=== PATIENT | male | born 1950 | race Caucasian/White ===

== ENCOUNTER 2017-03-16 22:37 | Emergency (ER) | payer MEDICARE, OTHER ==
--- NOTE | ~2017-03-16 | ER ---
PATIENT'S NAME: SHARRI QUINTERO [facility] AGE: 67 Y [address] ROOM: [place] [address] LOCATION: [facility] ADMIT DATE: 03/16/2017 ER/Outpatient Report DISCHARGE DATE: 03/17/2017 FAMILY PHYSICIAN: Giorgio Avlia MD ATTENDING PHYSICIAN: Erin Mejias HISTORY OF PRESENT ILLNESS: This is a 67-year-old male who presents today with a chief complaint of epigastric upper abdominal pain. He says it is band like through his upper abdomen and goes around to his back. Denies any urinary symptoms. This happened approximately 2 days ago. It lasted about 3 hours, was really intense, and then it just went away and then today it started approximately 10 hours ago. It has been coming and going in intensity, but still been constant, associated with some nausea, but no vomiting, no diarrhea. He is passing gas and having normal bowel movements. Denies any fever or chills. No urinary symptoms. The patient says prior to both of these he had some food, earlier today, for lunch, he had some fried food and some reed as well. Currently, his pain is 6/10, but when it is really bad, it is a 10/10. Denies any chest pain, shortness of breath, or diaphoresis. PAST MEDICAL HISTORY: Includes esophageal cancer. PAST SURGICAL HISTORY: Includes esophagectomy and hernia repair x3. SOCIAL HISTORY: He does not smoke, drink, or use any drugs. MEDICATIONS: Please see med list. ALLERGIES: NONE. REVIEW OF SYSTEMS: Reviewed by me and negative with the exception of those discussed in the HPI. PHYSICAL EXAMINATION: VITAL SIGNS: The patient is 5 feet, 11 inches, he is 84.4 kilos. Blood pressure is 123/79, heart rate 60, respiratory rate 18, temp is 96.3, and satting 98% on room air. GENERAL: The patient is an elderly white male. He looks mildly uncomfortable, but he is nontoxic, he is not jaundiced, he is not actively vomiting or retching. He is A and O x4. Moves all extremities. GCS is 15. PATIENT'S NAME: SHARRI QUINTERO [facility] AGE: 67 Y [address] ROOM: [place] [address] LOCATION: [facility] ADMIT DATE: 03/16/2017 ER/Outpatient Report DISCHARGE DATE: 03/17/2017 FAMILY PHYSICIAN: Giorgio Avila MD ATTENDING PHYSICIAN: Erin Mejias HEART: Heart rate is regular rate and rhythm. LUNGS: Lung sounds are clear. ABDOMEN: He has a large horizontal scar in his abdomen from where he had esophagectomy, but otherwise, he is just mildly tender in like the epigastric area, right upper quadrant, left upper quadrant area. He has no rebound or guarding. Negative Laboy sign. No CVA tenderness bilaterally. No right lower quadrant tenderness or left lower quadrant tenderness. EMERGENCY DEPARTMENT COURSE: I did a bedside ultrasound and I am clearly able to see a gallstone. There is shadowing, but there is no anterior gallbladder wall thickening, there is no pericholecystic fluid, he does not have a sonographic Laboy's, the gallbladder does not appear distended either. We did check some lab work including a CBC, CBC shows a white count of 4.7, H and H is 12.1/34.7, and platelets are 162. No bandemia. CMS shows a sodium of 137, potassium 3.9, chloride 103, CO2 27, anion gap 12.9, BUN is 12, creatinine is 0.8, total bilirubin is 0.5, alk phos is 87, AST 18, ALT 24, GFR greater than 60, amylase 64, lipase 256. Lactic acid 0.6. Procalcitonin less than 0.05. The patient was given Zofran and Percocet here after which he said his pain was much better. He said he cannot really feel it anymore and he is not nauseous. Discussed this with him that this is likely biliary colic according to this informal ultrasound that we did at bedside, but he will need to follow up with his primary care doctor. I told him to adjust his diet. No fatty or greasy foods. He will follow up appropriately with his primary care doctor. He understands reasons to come back to the ER sooner. IMPRESSION: Biliary colic. MD JAYCEE VELAW/moddenzel /[id number] d: 03/17/17 0407 t: 03/17/17 1822, OUTPATIENT REPORT
[2017-03-16 23:28] LABS: BASOPHIL % 0.6 %; EOSINOPHIL # 0.3 K/uL (0.0-0.5); EOSINOPHIL % 5.8 %; HEMATOCRIT 34.7 % (37.0-53.0); HEMOGLOBIN 12.1 g/dL (11.0-16.0); LYMPHOCYTE # 0.8 K/uL (0.8-4.0); LYMPHOCYTE % 16.5 %; MCH 33.1 pg (27.0-34.0); MCHC 34.9 gm/dL (32.0-36.5); MCV 94.8 fl (83.0-98.0); MONOCYTE # 0.5 K/uL (0.0-1.0); MONOCYTE % 10.3 %; NEUTROPHIL # (ANC) 3.1 K/uL (1.4-9.0); NEUTROPHIL % 66.8 %; NRBC % 0 /100WBC (0-0.00); PLATELET COUNT 162 K/uL (150-450); RBC 3.66 M/uL (3.50-5.50); RDW-CV 12.7 % (11.9-14.6); WBC 4.7 K/uL (4.0-11.0)
[2017-03-16 23:46] LABS: ALBUMIN 3.2 gm/dL (3.5-5.0); ALK PHOS 87 IU/L (33-138); ALT 24 IU/L (12-78); ANION GAP 10.9 (10.0-19.0); AST 18 IU/L (10-40); BLOOD UREA NITROGEN 12 mg/dL (6-24); CALCIUM 8.2 mg/dL (8.5-10.5); CHLORIDE 103 mMol/L (96-110); CO2 27 mMol/L (22-32); CREATININE 0.8 mg/dL (0.6-1.3); ESTIMATED GFR (MDRD EQUATION) > 60; POTASSIUM 3.9 mMol/L (3.7-5.1); SODIUM 137 mMol/L (135-145); TOTAL BILIRUBIN 0.5 mg/dL (0.0-1.5); TOTAL PROTEIN 6.2 g/dL (6.0-8.4)
[2017-04-05] MEDS ORDERED: LEXAPRO10 MG PO (13:58)
[2017-04-05] MEDS ORDERED: ZOFRAN4 MG PO (13:59)
[2017-04-05] MEDS ORDERED: NEXIUM40 MG PO (13:59)
[2017-04-10] MEDS ORDERED: NORCO 5-325 TA1 EACH PO (11:58)
== END 2017-03-17 00:11 | disposition disaster alternative care site (69) ==
LOC: GMED 22:37
PROVIDERS: Emergency Medicine
DX: K80.50 Calculus of bile duct without cholangitis or cholecystitis without obstruction (principal); Z90.49 Acquired absence of other specified parts of digestive tract; Z85.01 Personal history of malignant neoplasm of esophagus; Z98.890 Other specified postprocedural states

== ENCOUNTER → 2017-04-10 | Day surgery (SDC) | payer MEDICARE, OTHER ==
[~2017-04-10] VITALS: Ht 180.3 cm; Wt 81.6 kg
[~2017-04-10] MED LIST: LEXAPRO10 MG PO; NEXIUM40 MG PO; NORCO 5-325 TA1 EACH PO; ZOFRAN4 MG PO
--- NOTE | ~2017-04-10 | OR ---
PATIENT'S NAME: SHARRI QUINTERO [facility] AGE: 67 Y [address] ROOM: [place] [address] LOCATION: [facility] ADMIT DATE: 04/10/2017 OR/Procedure Report DISCHARGE DATE: FAMILY PHYSICIAN: INDERJIT ESQUIVEL MD ATTENDING PHYSICIAN: Pedro Figueroa SURGEON: Pedro Figueroa MD QUALITY COMPLIANCE CONSULTANT: Bashir Way PA-C DATE OF PROCEDURE: 04/10/2017 PREOPERATIVE DIAGNOSES: 1. Biliary colic, chronic cholecystitis with cholelithiasis. 2. History of esophagectomy secondary to carcinoma. POSTOPERATIVE DIAGNOSES: 1. Biliary colic, chronic cholecystitis with cholelithiasis. 2. History of esophagectomy secondary to carcinoma. PROCEDURE PERFORMED: Laparoscopic cholecystectomy. ANESTHESIA: General with 25 mL of 0.5% Marcaine with epinephrine. SPECIMENS: Gallbladder with stones. INDICATION: The patient is a 67-year-old gentleman who has been having abdominal complaint symptoms. The workup included ultrasound which showed cholelithiasis. The patient also has a history of previous esophagectomy for CA. We recommend laparoscopic, possible conversion to open cholecystectomy, and the patient agrees. DESCRIPTION OF PROCEDURE: After informed consent, the patient was taken to the operating room, and after general endotracheal anesthesia, the patient's abdomen was prepped and draped into a sterile field. A time-out performed. We confirmed the patient, planned procedure, and all our equipment was available even for open technique due to possible adhesions. We then injected local anesthetic below the umbilicus, did a transverse incision, identified the fascia, placed a Veress needle into the peritoneal cavity, and created pneumoperitoneum. 11 mm trocar and laparoscope inserted. Safe entry was noted. There were a lot of adhesions of small bowel and colon up to the anterior abdominal wall. Went just to the left of the midline in the epigastrium, placed our trocar under direct vision. We then placed a lateral 5 mm subcostal port. We then slowly and meticulously dissected off the small bowel adhesions to expose the right upper quadrant, liver edge, and the gallbladder. Once we were able to grasp the gallbladder at the fundus, we retracted it cephalad and again took down adhesions of the transverse colon and duodenum from the free wall of the gallbladder. Once we identified the PATIENT'S NAME: SHARRI QUINTERO [facility] AGE: 67 Y [address] ROOM: [place] [address] LOCATION: [facility] ADMIT DATE: 04/10/2017 OR/Procedure Report DISCHARGE DATE: FAMILY PHYSICIAN: INDERJIT ESQUIVEL MD ATTENDING PHYSICIAN: Pedro Figueroa infundibulum, we then were able to free up the lateral peritoneal reflection onto the liver, opened up the triangle, and bluntly dissected. We carefully identified the cystic artery and cystic duct. Each individually was clipped x4 and divided the gallbladder, removed from the liver bed, placed into an EndoCatch bag. We then cauterized bleeding points of the gallbladder fossa as needed, irrigated the right upper quadrant until clear. We inspected all 4 trocar sites, and no evidence of bowel injury was noted. The midline fascia defects were closed with 0 Vicryl, the skin closed with subcuticular 4-0 Vicryl. Steri-Strips and sterile dressings applied. The patient tolerated the procedure well, transferred to Recovery in stable condition. PEDRO FIGUEROA MD WTS/modl /[id number] d: 04/12/17 1514 t: 04/24/17 1743, OPERATIVE SUMMARY
== END | disposition disaster alternative care site (69) ==
LOC: GPOC 04-09 10:00 → GSDC 07:25
PROC: 0FT44ZZ Resection of Gallbladder, Percutaneous Endoscopic Approach (ICD-10-PCS; principal; 2017-04-10)
DX: K80.10 Calculus of gallbladder with chronic cholecystitis without obstruction (principal); I48.0 Paroxysmal atrial fibrillation; F32.9 Major depressive disorder, single episode, unspecified; K21.9 Gastro-esophageal reflux disease without esophagitis; N40.0 Benign prostatic hyperplasia without lower urinary tract symptoms; N52.9 Male erectile dysfunction, unspecified; Z85.01 Personal history of malignant neoplasm of esophagus; Z90.49 Acquired absence of other specified parts of digestive tract; Z98.890 Other specified postprocedural states
CPT/HCPCS: J0694; J1100; J1642; J2001; J2405; J2550; J7030